=== PATIENT | female | born 1985 | race American Indian/Alaskan Native ===

== ENCOUNTER 2019-08-23 05:08 | Emergency (ER) | payer SELFPAY ==
[2019-08-23] MEDS ORDERED: IPRATROPIUM/ALBUTEROL SULFATE 3 ML AMPUL.NEB IH ONE ×2 (05:17→05:29)
[2019-08-23 05:28] VITALS: BP 145/79
--- NOTE | 2019-08-23 06:03 | XRay Report ---
CHEST 2 VIEWS INDICATION / CLINICAL INFORMATION: Cough and wheezing. COMPARISON: None available. FINDINGS: SUPPORT DEVICES: None. HEART / MEDIASTINUM: The heart size and pulmonary vasculature are normal. LUNGS / PLEURA: No significant pulmonary or pleural abnormality. No pneumothorax. ADDITIONAL FINDINGS: No significant additional findings. IMPRESSION: No acute findings. Signer Name: Jb Aguiar MD Signed: 08/23/2019 5:58 AM Workstation Name: [id number]
--- NOTE | 2019-08-23 07:54 | Emergency Department Report ---
- General Chief Complaint: Adult Asthma Stated Complaint: SAURABH Time Seen by Provider: 08/23/19 07:34 Source: patient Mode of arrival: Ambulatory Limitations: No Limitations - History of Present Illness Initial Comments: 34 yo female reports few days of cold symptoms. Last night she woke up coughing and felt sob at the time. She denies fever chills no chest pain. Cough productive at times with clear sputum. She denies hx of asthma not a smoker, no recent travels, no surgery or trauma - Related Data Allergies Allergy/AdvReac Type Severity Reaction Status Date / Time No Known Allergies Allergy Verified 08/23/19 05:31 ED Review of Systems ROS: Stated complaint: SAURABH Other details as noted in HPI ED Past Medical Hx - Past Medical History Previous Medical History?: Yes Additional medical history: Bronchitis - Surgical History Past Surgical History?: No - Social History Smoking Status: Never Smoker Substance Use Type: None ED Physical Exam - General Limitations: No Limitations ED Course Vital Signs 08/23/19 05:13 Temperature 98.8 F Pulse Rate 93 H Respiratory 18 Rate Blood Pressure 145/79 O2 Sat by Pulse 98 Oximetry Critical care attestation.: If time is entered above; I have spent that time in minutes in the direct care of this critically ill patient, excluding procedure time. ED Disposition Clinical Impression: URI with cough and congestion Disposition: DC-01 TO HOME OR SELFCARE Is pt being admited?: No Does the pt Need Aspirin: No Condition: Stable Instructions: Upper Respiratory Infection (ED) Additional Instructions: Rest increase hydration with clear liquids. Ok to take over the counter cough medicine like robitussin or Mucinex. Take as directed by package insert. Follow up with your Primary care physician in 3-5 days or return to the ER for any worsening symptoms such as fever difficulty breathing. Referrals: TEODORO TONY MD [Staff Physician] - 3-5 Days Time of Disposition: 07:54
== END 2019-08-23 08:04 | disposition home or self-care (01) ==
LOC: ED 05:08
DX: J06.9 Acute upper respiratory infection, unspecified (principal)
CPT/HCPCS: 71046; 94640